=== PATIENT | male | born 1950 | race Caucasian/White ===

== ENCOUNTER → 2023-08-14 06:33 | Outpatient (REF) | payer MEDICARE, SELFPAY | LOC: MRI 06:33 | PROVIDERS: ATTENDING PHYSICIAN Pain Medicine Interventional Pain Medicine; FAMILY PHYSICIAN Family Medicine | DX: M54.16 Radiculopathy, lumbar region (principal) | CPT/HCPCS: 72148 ==

== ENCOUNTER → 2025-05-09 08:37 | Outpatient (REF) | payer MEDICARE, SELFPAY | LOC: RCS 08:37 | PROVIDERS: ATTENDING PHYSICIAN Registered Nurse Psychiatric/Mental Health, Adult; FAMILY PHYSICIAN Family Medicine | DX: R94.31 Abnormal electrocardiogram [ECG] [EKG] (principal) | CPT/HCPCS: 93005 ==